=== PATIENT | male | born 2005 | race Two or more races ===

== ENCOUNTER 2025-03-12 23:20 | Emergency (ER) | payer MEDICAID, OTHER ==
[~2025-03-12] VITALS: Ht 182.9 cm; Wt 59.0 kg
--- NOTE | 2025-03-13 00:15 | ED.PDOC ---
HPI Allergic reaction HPI Comments 19 y/o M is BIBA for allergic reaction s/p known allergen exposure. 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 Patient was exposed to allergen during a friend visit, who has pet cats at home. Patient reports developing a generalized rash to his chest and feet. En route, patient w as given Benadryl by EMS, with improvement. At time of assessment, patient complains of some mild stomach discomfort and states his rash has a improved dramatically. Patient denies any airway involvement. Chief Complaint: Allergic Reaction Time Seen by MD: 23:40 Reviewed Notes: Nurses Notes, Stock Worker Notes, Medications, Allergies Allergies: Coded Allergies: Cat Hair Extract (Verified Allergy, Unknown, 03/12/25) Penicillins (Verified Allergy, Unknown, 03/12/25) Sulfamethoxazole w/Trimethoprim (Verified Allergy, Unknown, 03/12/25) Information Source: Patient Mode of Arrival: EMS Severity: Mild Rash: Mild SOB: None Difficulty swallowing: None Pruritus: Moderate Timing: Minutes Duration: Since onset Prehospital treatment: Treatment Location: Abdomen, Chest, Foot Exposed to: Animal Developed: Pruritus, Rash Past Medical History PAST MEDICAL HISTORY: Denies Surgical History: Denies all surgeries Family History Family History: Unknown Social History Smoker: Non-Smoker Alcohol: Denies ETOH Use Drugs: Denies Drug Use Lives In: Home Constitutional: denies: chills, diaphoresis, fatigue, fever, malaise, sweats, weakness, others EENTM: denies: blurred vision, double vision, ear bleeding, ear discharge, ear drainage, ear pain, ear ringing, eye pain, eye redness, hearing loss, mouth pa in, mouth swelling, nasal discharge, nose bleeding, nose congestion, nose pain, photophobia, tearing, throat pain, throat swelling, voice changes, others Respiratory: denies: cough, hemoptysis, orthopnea, SOB at rest, shortness of breath, SOB with excertion, stridor, wheezing, others Cardiovascular: denies: chest pain, dizzy spells, diaphoresis, Dyspnea on exertion, edema, irregular heart beat, left arm pain, lightheadedness, palpitations, PND, syncope, others Gastrointestinal: denies: abdomen distended, abdominal pain, blood streaked bowels, constipated, diarrhea, dysphagia, difficulty swallowing, hematemesis, melena, nausea, poor appetite, poor fluid intake, rectal bleeding, rectal pain, vomiting, others Genitourinary: denies: burning, dysuria, flank pain, frequency, hematuria, incontinence, penile discharge, penile sore, pain, testicle pain, testicle swelling, urgency, others Neurological: denies: dizziness, fainting, headache, left sided numbness, left sided weakness, numbness, paresthesia, pre-existing deficit, right sided numbness, right sided weakness, seizure, speech problems, tingling, tremors, weakness, others Musculoskeletal: denies: back pain, gout, joint pain, joint swelling, muscle pain, muscle stiffness, neck pain, others Integumetry: reports: rash (Rash to chest and feet); denies: bruises, change in color, change in hair/nails, dryness, laceration, lesions, lumps, wounds, others Allergic/Immunocompromised: denies: Difficulty Healing, Frequent Infections, Hives, Itching, others Hematologic/Lymphatic: denies: anemia, blood clots, easy bleeding, easy bruising, swollen glands, others Endocrine: denies: excessive hunger, excessive sweating, excessive thirst, excessive urination, flushing, intolerance to cold, intolerance to heat, unexplained weight gain, unexplained weight loss, others Psychiatric: denies: anxiety, bipolar disorder, depression, hopeless, panic disorder, schizophrenia, sleepless, suicidal, others All Other Systems: Reviewed and Negative (Comprehensive systems review obtained and negative except for what is stated in the HPI.) Physical Exam General Appearance: Mild Distress (Moderate distress due to resolving rash concerns.), Normal HEENT: Normal ENT Inspection, Pharynx Normal, TMs Normal Neck: Full Range of Motion, Non-Tender, Normal, Normal Inspection Respiratory: Chest Non-Tender, Lungs Clear, No Accessory Muscle Use, No Respiratory Distress, Normal Breath Sounds Cardiovascular: No Edema, No JVD, No Murmur, No Gallop, Normal Peripheral Pulses, Regular Rate/Rhythm Breast Exam: Deferred Gastrointestinal: No Organomegaly, Non Tender, No Pulsatile Mass, Normal Bowel Sounds, Soft Genitalia: Deferred Pelvic: Deferred Rectal: Deferred Extremities: No calf tenderness, Normal capillary refill, Normal inspection, Normal range of motion, Non-tender, No pedal edema Neurologic: Alert, No Motor Deficits, Normal Affect, Normal Mood, No Sensory Deficits Cerebellar Function: Normal Reflexes: Normal Skin: Rash (Very mild sandpaper rash noted to chest and feet. In his signs of infection. No excoriation) Lymphatic: No Adenopathy Was a procedure done? Was a procedure done?: No Differential diagnosis (all) Differential Diagnosis: Anaphylaxis, Angioedema, Contact Dermatitis, Shock, U rticaria X-Ray, Labs, Meds, VS Vital Signs Date Time Temp Pulse Resp B/P (MAP) Pulse Ox O2 Delivery O2 Flow Rate FiO2 03/12/25 23:36 99.2 78 16 132/91 (105) 98 99.2 03/12/25 23:36 16 98 Room Air* 0 21 X-Ray, Labs, Meds, VS Comment Patient received a dose of dexamethasone will be discharged home. Patient knows to stay away from cat dander. Time of 1ST Reevaluation: 00:53 Reevaluation 1ST: Improved Consultation: PCP Patient Education/Counseling: Diagnosis, Treatment, Need For Follow Up Family Education/Counseling: Diagnosis, Treatment, No Family Present SEPSIS Sepsis Screen Date sepsis recognized/suspect: Mar 12, 2025 Time Sepsis recognized/suspect: 2325 Recent Procedure: No On Antibiotic Therapy: No Respiratory Rate >20: No Heart Rate >90: No Temp<36 C (96.8 F) or >38.3 C: No SBP <90 or MAP <65 mmHG: No New Acute Mental Status Change: No Is the patient on CPAP, BIPAP,: No Vital Signs Date Time Temp Pulse Resp B/P (MAP) Pulse Ox O2 Delivery O2 Flow Rate FiO2 03/12/25 23:36 99.2 78 16 132/91 (105) 98 99.2 03/12/25 23:36 16 98 Room Air* 0 21 Departure 1 Departure Time of Disposition: 00:53 Impression: Primary Impression: Allergic dermatitis Disposition: HOME / SELF CARE / HOMELESS Condition: Stable Additional Instructions: Advised patient to continue to maintain distance from cats and cat dander. Discharged With: Self, Friend Critical Care Note Critical Care Time?: No Stability Stability form required: No Heart Score Heart Score: Heart Score Response (Comments) Value History N/A 0 EKG N/A 0 Age N/A 0 Risk Factors N/A 0 Troponin N/A 0 Total 0 I personally scribed for MICHELINE DEGROOT PAC ([email or web address] on 03/13/25 at 00:15. Electronically submitted by Pavel Melgar ([email or web address]). MICHELINE DEGROOT PAC Mar 13, 2025 00:15
[2025-03-13 01:50] VITALS: BP 119/76; TEMP 98.5; O2SAT 96
[2025-03-13 01:54] VITALS: PULSE 63; RESP 18
== END 2025-03-13 02:02 | disposition home or self-care (01) ==
LOC: EDBD 23:20 → ER 23:20
DX: L23.9 Allergic contact dermatitis, unspecified cause (principal); Z88.0 Allergy status to penicillin; Z88.1 Allergy status to other antibiotic agents; Z88.2 Allergy status to sulfonamides
CPT/HCPCS: 96372; J1100

== ENCOUNTER 2025-04-04 10:37 | Outpatient (CLI) | payer MEDICAID ==
[2025-04-04 11:27] LABS: Hematocrit 45.1 % (41.0-53.0); Hemoglobin 15.4 g/dL (13.5-17.5); Mean Corpuscular Hemoglobin 29.4 pg (28.0-32.0); Mean Corpuscular Volume 86.1 fL (80.0-100.0); Nucleated Red Blood Cells % 0.1 %
== END 2025-04-04 17:00 | disposition home or self-care (01) ==
LOC: LAB 10:37
PROVIDERS: ATTEND Internal Medicine
DX: E78.5 Hyperlipidemia, unspecified (principal)
CPT/HCPCS: 36415; 85025